=== PATIENT | female | born 1995 | race Hispanic/Latino ===

== ENCOUNTER 2017-02-07 09:06 | Emergency (ER) | payer BC ==
[2017-02-07 09:29] VITALS: BP 131/89
--- NOTE | 2017-02-07 09:43 | EDM.PDOC ---
ED HPI GENERAL MEDICAL PROBLEM - General Chief Complaint: ENT Problem Stated Complaint: SENT BY [facility] FOR EVAL OF SINUS INFECTION Time Seen by Provider: 02/07/17 09:43 Source of Information: Reports: Patient History Limitations: Reports: No Limitations - History of Present Illness INITIAL COMMENTS - FREE TEXT/NARRATIVE: 21-year-old female sent across this from [facility] due to severe retro-ocular pain right side. Patient states she developed right hemifacial pain and swelling and eye pain yesterday. Associated low-grade fever. Denies cough or sputum production. States she can't breathe through either nose. She was treated for a sinus infection with Doxil cycle 100 mg twice daily for 10 days starting January 19. Stated improve sinus infection diagnosed at that time. She doesn't blow her nose much at all. She does have some mild pain in her right ear. It hurts to chew. Onset: Sudden Onset Date: 02/06/17 Duration: Day(s): Location: Reports: Face (Right jonh-face and now particularly affecting her right) Quality: Reports: Ache, Pressure, Throbbing Severity: Moderate Improves with: Reports: None (Rates current pain 7 out of 10.) Worsens with: Reports: Other Context: Denies: Activity, Exercise (Touching the area), Lifting, Sick Contact, Trauma, Other Associated Symptoms: Reports: Fever/Chills (Is running a low-grade fever), Loss of Appetite, Malaise. Denies: Confusion, Chest Pain, Cough, cough w sputum, Diaphoresis, Headaches, Nausea/Vomiting, Rash Treatments EDUCATION AND TRAINING MANAGER: Reports: Other (see below) (Motrin yesterday.) Right Eye Pain Score (Numeric/FACES): 9 - Related Data Allergies Allergy/AdvReac Type Severity Reaction Status Date / Time No Known Allergies Allergy Verified 02/07/17 09:16 Home Meds: Home Meds Acetaminophen/Codeine [Tylenol/Codeine 120-12 MG/5 ML] 02/07/17 [History] Amoxicillin/Clavulanate K [Augmentin 500 MG\125 MG] 1 tab PO Q12HR #24 tablet [Rx] Cyclobenzaprine [Flexeril] 10 mg PO ONETIME 02/07/17 [History] Loratadine/Pseudoephedrine [Claritin-D 24 Hour Tablet] 1 each PO DAILY #5 tab.er.24h 02/07/17 [Rx] Prednisone [IMW: predniSONE] 20 mg PO BID #10 tab 02/07/17 [Rx] medroxyPROGESTERone Acetate [Depo-Provera] 150 mg IM 02/07/17 [History] oxyCODONE HCl/Acetaminophen [Percocet 5-325 mg Tablet] 1 - 2 each PO Q4H PRN # 20 tablet 02/07/17 [Rx] Past Medical History - Past Health History Medical/Surgical History: Denies Medical/Surgical History Social & Family History - Tobacco Use Smoking Status *Q: Never Smoker - Recreational Drug Use Recreational Drug Use: No - Living Situation & Occupation Living situation: Reports: Single Occupation: Employed ED ROS ENT - Review of Systems Review Of Systems: See Below Constitutional: Reports: Fever, Malaise, Decreased Appetite HEENT: Reports: Eye Pain (Right eye pain particularly with any movement inferiorly or laterally.), Sinus Problem Respiratory: Reports: No Symptoms, Shortness of Breath, Wheezing. Denies: Pleuritic Chest Pain Cardiovascular: Reports: No Symptoms (Having problems with sinuses for a lengthy period of time.) Endocrine: Reports: No Symptoms GI/Abdominal: Reports: No Symptoms : Reports: No Symptoms Musculoskeletal: Reports: No Symptoms Skin: Reports: No Symptoms Neurological: Reports: No Symptoms Psychiatric: Reports: No Symptoms Hematologic/Lymphatic: Reports: No Symptoms Immunologic: Reports: No Symptoms ED EXAM, ENT - Physical Exam Exam: See Below Exam Limited By: No Limitations General Appearance: Alert, WD/WN, Moderate Distress (Her right eye is only partially open as she prefers to keep it closed due to pain.) Eye Exam: Right Eye: Abnormal EOM, Bilateral Eye: EOMI (Has marked pain with looking inferiorly and laterally with the right eye.), PERRL Ears: Normal TMs Nose: Nasal Swelling (The nose is completely swollen closed on the left side. The right shows purulent material in the posterior nasopharynx.) Mouth/Throat: Normal Inspection, Normal Gums, Normal Lips, Normal Oropharynx Head: Atraumatic, Normocephalic, Facial Swelling (Moderate facial swelling over the maxillary sinus area and under her right eye. This areas also exquisitely tender to palpation as is palpation of the frontal ethmoid sinus area.) Neck: Normal Inspection, Supple, Non-Tender, Full Range of Motion Respiratory/Chest: No Respiratory Distress, Lungs Clear Cardiovascular: Normal Peripheral Pulses, Regular Rate, Rhythm, No Edema GI/Abdominal: Normal Bowel Sounds, Soft, Non-Tender, No Organomegaly Back: Normal Inspection, Decreased Range of Motion Extremities: Normal Inspection, Normal Range of Motion, Non-Tender, No Pedal Edema Neurological: Alert, Oriented, CN II-XII Intact, Normal Cognition, Normal Gait Course - Vital Signs Last Recorded V/S: Last Vital Signs Temp 36.2 C 02/07/17 09:17 Pulse 99 02/07/17 09:17 Resp 18 02/07/17 09:17 BP 131/89 02/07/17 09:17 Pulse Ox 99 02/07/17 09:17 - Orders/Labs/Meds Orders: Active Orders 24 hr Category Date Time Status Peripheral IV Care [RC] . DIRECTED Care 02/07/17 09:50 Active Ketorolac [Toradol] Med 02/07/17 10:45 Active 30 mg IVPUSH ONETIME Sodium Chloride 0.9% [Saline Flush] Med 02/07/17 09:49 Active 10 ml FLUSH ASDIRECTED PRN cefTRIAXone [Rocephin] 2 gm Med 02/07/17 10:00 Active Sodium Chloride 0.9% [Normal Saline] 100 ml IV Q24H Peripheral IV Insertion Adult [OM.PC] Stat Oth 02/07/17 09:50 Ordered Medication Orders Ceftriaxone Sodium 2 gm/ (Sodium Chloride) 100 mls @ 200 mls/hr IV Q24H [facility] Last Admin: 02/07/17 09:59 Dose: 200 mls/hr Ketorolac Tromethamine (Toradol) 30 mg IVPUSH ONETIME ARACELY Last Admin: 02/07/17 10:58 Dose: 30 mg Sodium Chloride (Saline Flush) 10 ml FLUSH ASDIRECTED PRN PRN Reason: Keep Vein Open Last Admin: 02/07/17 11:06 Dose: 10 ml Admin: 02/07/17 09:59 Dose: 10 ml Labs: Laboratory Tests 02/07/17 02/07/17 Range/Units 09:30 09:30 WBC 8.73 (3.98-10.04) K/mm3 RBC 4.48 (3.98-5.22) M/mm3 Hgb 12.8 (11.2-15.7) gm/L Hct 39.6 (34.1-44.9) % MCV 88.4 (79.4-94.8) fl MCH 28.6 (25.6-32.2) pg MCHC 32.3 (32.2-35.5) g/dl RDW Std Deviation 43.2 (36.4-46.3) fL Plt Count 338 (182-369) K/mm3 MPV 10.0 (9.4-12.3) fl Neutrophils % (Manual) 62 H (40-60) % Band Neutrophils % 2 (0-10) % Lymphocytes % (Manual) 29 (20-40) % Atypical Lymphs % 0 % Monocytes % (Manual) 4 (2-10) % Eosinophils % (Manual) 2 (0.7-5.8) % Basophils % (Manual) 1 (0.1-1.2) Platelet Estimate Adequate RBC Morph Comment Normal Sodium 140 (136-145) mEq/L Potassium 3.9 (3.5-5.1) mEq/L Chloride 103 (98-107) mEq/L Carbon Dioxide 24 (21-32) mEq/L Anion Gap 16.9 H (5-15) BUN 11 (7-18) mg/dL Creatinine 0.6 (0.55-1.02) mg/dL Est Cr Clr Drug Dosing 143.02 mL/min Estimated GFR (MDRD) > 60 (>60) mL/min BUN/Creatinine Ratio 18.3 H (14-18) Glucose 88 (74-106) mg/dL Calcium 9.6 (8.5-10.1) mg/dL Total Bilirubin 0.8 (0.2-1.0) mg/dL AST 23 (15-37) U/L ALT 48 (14-59) U/L Alkaline Phosphatase 69 (46-116) U/L C-Reactive Protein 12.0 H* (<1.0) mg/dL Total Protein 8.0 (6.4-8.2) g/dl Albumin 3.8 (3.4-5.0) g/dl Globulin 4.2 gm/dL Albumin/Globulin Ratio 0.9 L (1-2) Meds: Medications Generic Name Dose Route Start Last Admin Trade Name Freq PRN Reason Stop Dose Admin Ceftriaxone Sodium 2 gm/ 100 mls @ 200 mls/hr 02/07/17 10:00 02/07/17 09:59 Sodium Chloride IV 200 mls/hr Q24H ARACELY Administration Ketorolac Tromethamine 30 mg 02/07/17 10:45 02/07/17 10:58 Toradol IVPUSH 30 mg ONETIME ARACELY Administration Sodium Chloride 10 ml 02/07/17 09:49 02/07/17 11:06 Saline Flush FLUSH 10 ml ASDIRECTED PRN Administration Keep Vein Open Discontinued Medications Generic Name Dose Route Start Last Admin Trade Name Lottie PRN Reason Stop Dose Admin Dexamethasone 10 mg 02/07/17 10:40 02/07/17 11:02 Dexamethasone IVPUSH 02/07/17 10:41 10 mg ONETIME ONE Administration Dexamethasone Confirm 02/07/17 11:09 02/07/17 11:07 Dexamethasone Administered 02/07/17 11:10 Not Given Dose 8 mg .ROUTE .STK-MED ONE Hydromorphone HCl 0.5 mg 02/07/17 10:37 02/07/17 11:00 Dilaudid IVPUSH 02/07/17 10:38 0.5 mg ONETIME ONE Administration Ondansetron HCl 4 mg 02/07/17 10:37 02/07/17 10:56 Zofran IVPUSH 02/07/17 10:38 4 mg ONETIME ONE Administration - Radiology Interpretation Free Text/Narrative:: 21-year-old female seen through the ED due to right periocular pain retro- orbital pain and right hemifacial pain that seemed to start over the last 48 hours. Patient was treated with sinus for sinus infection with doxepin 100 mg twice a day from January 19 to the of which she finished all of her prescription. Symptoms of right hemifacial paiin started yesterday and progressed to make it painful to move her right eye today. Particularly inferiorly or laterally. She does have right hemifacial swelling over the maxillary sinus. There is no erythema of the tissues of the right jonh-face. He' ll material in the right posterior nasopharynx left nose is completely occluded from turbinate swelling. Suspect severe sinus infection. Lab work will be done. We'll give her Rocephin [address] paranasal sinuses or maxillary facial bones will be done. - Re-Assessments/Exams Free Text/Narrative Re-Assessment/Exam: 02/07/17 10:36 CT of the maxillofacial bones reveals a very severely impacted right maxillary sinus infection. Ethmoids and sphenoids are involved on the right side as well. Frontals appear to be clear. There is no severe retro- bulbar pathology appreciated however I do see some stranding along the medial floor of the orbit. This should probably be followed by CT in a couple of days to make sure that no abscess develops in this area. I will give her a bit of pain management. She is receiving Rocephin 2 g IV for the infective process. Given Toradol 30 mg IV with Zofran 4 mg IV and Dilaudid 0.5 mg IV for pain relief. Will also give dexamethasone 10 mg IV. 02/07/17: The right hand also identified the stranding of the fat in the medial aspect of her orbit along the lamina appreciated. This raises concerns about potential for an abscess development in this area. She may well require more immediate ENT consultation. I discussed this with her and she states that she has no way of getting to [place] within the next 48 hours privately. At this time I don't think ENT has anything to offer in terms of trying a trial of IV antibiotics and see if she improves over the next 48 hours. The procedure can be delayed. Therefore option was to treat her as an outpatient with IV antibiotics 2 g of Rocephin once daily for 3 days and then reassess. 02/07/17 11:35 She will be discharged home on Augmentin 500/125 mg tablet twice daily for the next 12 days to clear up infection in the sinus. Will suggest Claritin-D 24-Hour release 1 tablet every morning for the next 5 days in an effort to produce some decongestion. She'll continue anti-inflammatory Motrin 600 mg every 6 hours or Aleve 2 tablets every 8 hours for pain and inflammation relief. Also did discharge her on 20 tablets of Percocet 5/325 milligrams strength one or 2 every 4-6 hours for pain relief. Excused from the work place for the next 3 days. I will also have her come back once daily for for IV antibiotics. 2 g of Rocephin February 08 and February 09. I will see her in follow- up tomorrow. I discussed the case with a on-call assistant curator who felt IV antibiotic were appropriate and likely nothing further needs to be done. If something does need to be done he would defer to your nose and throat surgery to have emergency sinus surgery performed on the right side. Again CT of the orbital space should probably be done in 48 hours if she is not markedly improved. I will see her in follow-up tomorrow morning when she comes in for IV antibiotics. Departure - Departure Time of Disposition: 11:36 Disposition: Home, Self-Care 01 Condition: Fair Clinical Impression: Right maxillary sinusitis - Discharge Information Prescriptions: Amoxicillin/Clavulanate K [Augmentin 500 MG\125 MG] 1 tab PO Q12HR #24 tablet Loratadine/Pseudoephedrine [Claritin-D 24 Hour Tablet] 1 each PO DAILY #5 tab.er.24h oxyCODONE HCl/Acetaminophen [Percocet 5-325 mg Tablet] 1 - 2 each PO Q4H PRN # 20 tablet PRN Reason: pain relief. Prednisone [IMW: predniSONE] 20 mg PO BID #10 tab Instructions: Sinusitis, Adult, [id number] Referrals: Ramez Leon MD [Primary Care Provider] - Forms: ED Department Discharge, ED Return to Work/School Form Additional Instructions: Evaluation the emergency room today in regards to severe right hemifacial and periocular pain. Examination reveals right racial cheek swelling and marked pain over the maxillary sinus. Painful range of motion of the right eye particularly lateral and downward gaze. CT scan of the facial bones reveals extensive sinusitis involving the maxillary sinus the ethmoid and the sphenoid sinus on the right side. There was no inflammation in the space behind her right eye. Treatment was started in the ER with intravenous antibiotic Rocephin 2 g given as well as dexamethasone 10 mg IV and pain medication Toradol 30 mg and Dilaudid 0.5 mg. Treatment at home will be to continue antibiotic Augmentin 500 mg twice daily for the next 12 days to clear up sinus infection. I would suggest making an appointment with ear nose and throat surgeon in [place] as you may well require surgical intervention to clear this sinus infection completely. Continue Motrin 600 mg every 6 hours or Aleve 2 tablets every 8 hours for reduction of pain and inflammation. Pain medication Percocet 5/325 milligrams one or 2 every 4-6 hours for pain not controlled by Aleve or Motrin alone. Hopefully pain will start to improve after you've been on antibiotics for 3 days. Also suggest a short course of prednisone 20 mg with breakfast and supper starting tomorrow morning for the next 5 days to reduce inflammatiion in the sinus. Follow-up with personal physician late next week to see how you're doing and arrange ENT referral. Since you're unable to get down to [place] for ear nose and throat consultation for a few days decision made to have you come back to the hospital tomorrow and the next day for intravenous antibiotic therapy. Will receive 2 g of Rocephin intravenously similar to what she received today. I will see her tomorrow morning when you come back for review. Note given to excuse her from the work place for the next 3 days. - My Orders Last 24 Hours: My Active Orders 02/07/17 09:49 Sodium Chloride 0.9% [Saline Flush] 10 ml FLUSH ASDIRECTED PRN 02/07/17 09:50 Peripheral IV Care [RC] . DIRECTED Peripheral IV Insertion Adult [OM.PC] Stat 02/07/17 10:00 cefTRIAXone [Rocephin] 2 gm Sodium Chloride 0.9% [Normal Saline] 100 ml IV Q24H 02/07/17 10:45 Ketorolac [Toradol] 30 mg IVPUSH ONETIME - Assessment/Plan Last 24 Hours: My Active Orders 02/07/17 09:49 Sodium Chloride 0.9% [Saline Flush] 10 ml FLUSH ASDIRECTED PRN 02/07/17 09:50 Peripheral IV Care [RC] . DIRECTED Peripheral IV Insertion Adult [OM.PC] Stat 02/07/17 10:00 cefTRIAXone [Rocephin] 2 gm Sodium Chloride 0.9% [Normal Saline] 100 ml IV Q24H 02/07/17 10:45 Ketorolac [Toradol] 30 mg IVPUSH ONETIME
[2017-02-07] MEDS: Sodium Chloride 0.9% 10 ML Syringe FLUSH PRN ×2 (09:59→11:06)
[2017-02-07] MEDS ORDERED: cefTRIAXone 2 GM in Sodium Chloride 0.9% 100 ML IV SCH (10:00)
[2017-02-07] MEDS ORDERED: HYDROmorphone 0.5 MG/0.5 ML Syringe IVPUSH ONE (10:37)
[2017-02-07] MEDS ORDERED: Ondansetron 4 MG/2 ML SDV IVPUSH ONE (10:37)
[2017-02-07] MEDS ORDERED: Dexamethasone 4 MG/ML SDV IVPUSH ONE (10:40)
[2017-02-07] MEDS ORDERED: Ketorolac 30 MG/ML SDV IVPUSH SCH (10:45)
[2017-02-07] MEDS ORDERED: Dexamethasone 4 MG/ML SDV ONE (11:09)
--- NOTE | 2017-02-07 11:52 | CT ---
Addendum: I am in receipt of preliminary report from [facility] describing slight soft tissue thickening along the right medial orbital wall which was not mentioned on the final report. This soft tissue thickening is located medial to the medial rectus muscle and likely represents infection from extension from the right sided paranasal sinus disease. Close follow-up is recommended to make sure this does not enlarge. Follow-up CT could be considered several weeks after clinical therapy is complete to further evaluate for resolution. Earlier CT could be obtained if patient does not appear to respond to antibiotic therapy. Diagnostic code #5 I agree with preliminary report issued by [facility] ([facility] report finalized on 02/07/17, 12:54 PM Central Time) --- Addendum1 above dictated on [02/07/2017 12:03] by [Jimmy Miranda Hilton J.] --- --- Addendum1 above signed on [02/07/2017 12:04] by [Jimmy Miranda Hilton J.] --- --- Original report below dictated on [02/07/2017 11:48] by [Jimmy Miranda, John Mcmahon] --- --- Original report below signed on [02/07/2017 11:48] by [Jimmy Miranda, John Mcmahon] --- CT maxillofacial Technique: Multiple axial sections were obtained from below the mandible superiorly through the frontal sinus. Intravenous contrast was not utilized. Findings: Opacification of the right maxillary sinus is seen. Opacification of the right nasal cavity is also seen with moderate mucosal thickening seen within the right ethmoid sinus. Sphenoid sinus is clear. Left maxillary sinus is clear. No air-fluid levels are seen within the sinuses. Mastoid sinuses and middle ear cavities are clear. No soft tissue fluid collections are seen. No adenopathy is seen. No retrobulbar abnormality is seen. Right and left globes are symmetric. Extraocular muscles are symmetric. Impression: 1. Sinus findings as noted above. No additional abnormality is identified on maxillofacial CT exam. Diagnostic code #3 --- Addendum1 signed ---
== END 2017-02-07 12:45 | disposition home or self-care (01) ==
LOC: JD.ED 09:06
DX: J32.0 Chronic maxillary sinusitis (principal); Z79.899 Other long term (current) drug therapy
CPT/HCPCS: 36415; 70486; 80053; 85025; 86140; 96365; 96375; 99284; J0696; J1100; J1170; J1885; J2405; J7030; J7050